=== PATIENT | female | born 1995 | race Caucasian/White ===

== ENCOUNTER 2021-08-07 00:08 | Emergency (ER) | payer BC ==
[~2021-08-07] VITALS: Ht 167.6 cm; Wt 61.4 kg
[2021-08-07 00:23] VITALS: TEMP 97.6
[2021-08-07 02:22] VITALS: BP 115/78; PULSE 49
== END 2021-08-07 01:12 | disposition home or self-care (01) ==
LOC: COL.ER 00:08
DX: M79.605 Pain in left leg (principal)